=== PATIENT | male | born 1990 | race Caucasian/White ===

== ENCOUNTER 2016-08-16 02:03 | Inpatient (IN) | payer BC ==
[2016-08-16] MEDS ORDERED: Ondansetron 4 MG/2 ML SDV IVPUSH ONE (02:38)
[2016-08-16] MEDS ORDERED: Sodium Chloride 0.9% 1,000 ML IV ONE ×3 (02:38→09:19)
[2016-08-16] MEDS ORDERED: Ketorolac 30 MG/ML SDV IVPUSH ONE (02:38)
[2016-08-16] MEDS ORDERED: Iopamidol 755 Mg/ML 100 ML Bottle IVPUSH STA (02:39)
[2016-08-16 03:05] LABS: CHLORIDE,CL 103 mmol/L (98-110); SODIUM,NA 140 mmol/L (136-146)
[2016-08-16] MEDS ORDERED: Sodium Chloride 0.9% 1,000 ML IV SCH (03:45)
--- NOTE | 2016-08-16 03:47 | EDM.PDOC ---
ED HPI GENERAL MEDICAL PROBLEM - General Chief Complaint: Abdominal Pain Stated Complaint: ABDOMINAL PAIN Time Seen by Provider: 08/16/16 03:45 Source of Information: Reports: Patient - History of Present Illness INITIAL COMMENTS - FREE TEXT/NARRATIVE: HISTORY AND PHYSICAL: History of present illness: [] Patient presents with abdominal pain he rates 8/10 radiating to bilateral flanks, it is hard for him to pinpoint the abdominal pain seems to be epigastric radiating to bilateral flanks, he describes it as being a bit of gas , he did take Gas-X with no improvement earlier on today, on exam he has some left lower quadrant tenderness on deep palpation. He states pain began yesterday and was mild at that time he took Tylenol with resolution. Pain returning again today worsening throughout the day and this evening decreased to the 8/10 pain prompting his arrival here currently no fever nausea vomiting chills sweats no chest pain shortness breath headache dizziness or palpitation no bowel or urine symptoms History of prior pancreatitis secondary to gallbladder dysfunction History of cholecystectomy Review of systems: As per history of present illness and below otherwise all systems reviewed and negative. Past medical history: As per history of present illness and as reviewed below otherwise noncontributory. Surgical history: As per history of present illness and as reviewed below otherwise noncontributory. Social history: No reported history of drug or alcohol abuse. Family history: As per history of present illness and as reviewed below otherwise noncontributory. Physical exam: HEENT: Atraumatic, normocephalic, pupils reactive, negative for conjunctival pallor or scleral icterus, mucous membranes moist, throat clear, neck supple, nontender, trachea midline. Lungs: Clear to auscultation, breath sounds equal bilaterally, chest nontender. Heart: S1S2, regular, negative for clicks, rubs, or JVD. Abdomen: Soft, nondistended, tender in epigastrium and left lower quadrant on deep palpation, some guarding no rebound Negative for masses or hepatosplenomegaly. Negative for costovertebral tenderness. Pelvis: Stable nontender. Genitourinary: Deferred. Rectal: Deferred. Extremities: Atraumatic, negative for cords or calf pain. Neurovascular unremarkable. Neuro: Awake, alert, oriented. Cranial nerves II through XII unremarkable. Cerebellum unremarkable. Motor and sensory unremarkable throughout. Exam nonfocal. Diagnostics: [] Lab as below CT abdomen pelvis with and without contrast Therapeutics: [] 1 L normal saline bolus Zofran 8 mg IV Toradol 30 mg IV Impression: Abdominal pain pancreatitis Definitive disposition and diagnosis as appropriate pending reevaluation and review of above. Right Upper Abdomen Pain Score (Numeric/FACES): 6 - Related Data Allergies Allergy/AdvReac Type Severity Reaction Status Date / Time miconazole nitrate Allergy Rash Verified 06/08/15 16:47 [From Neosporin AF] morphine Allergy Hallucinati Verified 06/08/15 16:47 ons Sulfa (Sulfonamide Allergy Rash Verified 06/08/15 16:47 Antibiotics) Home Meds: Home Meds Fluconazole [Diflucan] 150 mg PO WEEKLY 06/08/15 [History] diphenhydrAMINE HCl [Benadryl] 25 mg PO Q6HR 3 Days 06/08/15 [Rx] methylPREDNISolone [Medrol] 4 mg PO ASDIRECTED #1 dospk 06/08/15 [Rx] Past Medical History - Past Health History Medical/Surgical History: Denies Medical/Surgical History HEENT History: Reports: None Cardiovascular History: Reports: None Respiratory History: Reports: None Gastrointestinal History: Reports: Pancreatitis Genitourinary History: Reports: None Neurological History: Reports: None Psychiatric History: Reports: None Endocrine/Metabolic History: Reports: None Hematologic History: Reports: None Immunologic History: Reports: None Oncologic (Cancer) History: Reports: None Dermatologic History: Reports: None - Past Surgical History Head Surgeries/Procedures: Reports: None HEENT Surgical History: Reports: Adenoidectomy, Tonsillectomy GI Surgical History: Reports: Cholecystectomy Musculoskeletal Surgical History: Reports: Other (see below) Other Musculoskeletal Surgeries/Procedures:: knee sx Social & Family History - Family History Family Medical History: Noncontributory - Tobacco Use Smoking Status *Q: Never Smoker Second Hand Smoke Exposure: No - Caffeine Use Caffeine Use: Reports: Soda Caffeine Use Comment: 2drinks/day - Recreational Drug Use Recreational Drug Use: No ED ROS GENERAL - Review of Systems Review Of Systems: ROS reveals no pertinent complaints other than HPI. ED EXAM, GENERAL - Physical Exam Exam: See Below Course - Vital Signs Last Recorded V/S: Last Vital Signs Temp 36.4 C 08/16/16 03:36 Pulse 88 08/16/16 03:36 Resp 16 08/16/16 03:36 BP 130/91 H 08/16/16 03:36 Pulse Ox 99 08/16/16 03:36 - Orders/Labs/Meds Orders: Active Orders 24 hr Category Date Time Status Abdomen Pelvis w wo Cont [CT] Stat Exams 08/16/16 02:38 Taken Sodium Chloride 0.9% [Normal Saline] 1,000 ml Med 08/16/16 03:45 Active IV STAT Medication Orders Sodium Chloride (Normal Saline) 1,000 mls @ 150 mls/hr IV STAT GEMA Last Admin: 08/16/16 04:18 Dose: 150 mls/hr Labs: Laboratory Tests 08/16/16 08/16/16 08/16/16 Range/Units 02:40 02:40 02:40 WBC 9.24 (4.0-11.0) K/uL RBC 5.05 (4.50-5.90) M/uL Hgb 15.3 (13.0-17.0) g/dL Hct 43.6 (38.0-50.0) % MCV 86.3 (80.0-98.0) fL MCH 30.3 (27.0-32.0) pg MCHC 35.1 (31.0-37.0) g/dL RDW Std Deviation 37.2 (28.0-62.0) fl RDW Coeff of Denice 12 (11.0-15.0) % Plt Count 243 (150-400) K/uL MPV 8.40 (7.40-12.00) fL Neut % (Auto) 71.8 (48.0-80.0) % Lymph % (Auto) 14.1 L (16.0-40.0) % [place] % (Auto) 10.4 (0.0-15.0) % Eos % (Auto) 3.5 (0.0-7.0) % Baso % (Auto) 0.2 (0.0-1.5) % Neut # 6.6 H (1.4-5.7) K/uL Lymph # 1.3 (0.6-2.4) K/uL [place] # 1.0 H (0.0-0.8) K/uL Eos # 0.3 (0.0-0.7) K/uL Baso # 0.0 (0.0-0.1) K/uL Sodium 140 (136-146) mmol/L Potassium 3.9 (3.5-5.1) mmol/L Chloride 103 (98-110) mmol/L Carbon Dioxide 25 (21-31) mmol/L BUN 12 (6.0-23.0) mg/dL Creatinine 0.9 (0.6-1.5) mg/dL Est Cr Clr Drug Dosing 155.38 mL/min Estimated GFR (MDRD) > 60.0 ml/min Glucose 100 (60-110) mg/dL Calcium 10.5 (8.8-10.8) mg/dL Total Bilirubin 0.6 (0.1-1.5) mg/dL AST 25 (5-40) IU/L ALT 75 H (8-54) IU/L Alkaline Phosphatase 149 (40-150) Total Protein 8.1 H (6.0-8.0) g/dL Albumin 4.3 (3.5-5.0) g/dL Globulin 3.8 H (2.0-3.5) g/dL Albumin/Globulin Ratio 1.1 L (1.3-2.8) Amylase 145 H (10-90) U/L Lipase 265 H (7-80) U/L Urine Color YELLOW Urine Appearance CLEAR Urine pH 5.5 (5.0-8.0) Ur Specific [place] 1.020 (1.001-1.035) Urine Protein NEGATIVE (NEGATIVE) mg/dL Urine Glucose (UA) NEGATIVE (NEGATIVE) mg/dL Urine Ketones NEGATIVE (NEGATIVE) mg/dL Urine Occult Blood NEGATIVE (NEGATIVE) Urine Nitrite NEGATIVE (NEGATIVE) Urine Bilirubin NEGATIVE (NEGATIVE) Urine Urobilinogen 0.2 (<2.0) EU/dL Ur Leukocyte Esterase NEGATIVE (NEGATIVE) Urine RBC 0-1 (0-2/HPF) Urine WBC 0-1 (0-5/HPF) Ur Epithelial Cells FEW (NONE-FEW) Urine Bacteria FEW (NEGATIVE) Meds: Medications Generic Name Dose Route Start Last Admin Trade Name Freq PRN Reason Stop Dose Admin Sodium Chloride 1,000 mls @ 150 mls/hr 08/16/16 03:45 08/16/16 04:18 Normal Saline IV 150 mls/hr STAT GEMA Administration Discontinued Medications Generic Name Dose Route Start Last Admin Trade Name Freq PRN Reason Stop Dose Admin Sodium Chloride 1,000 mls @ 999 mls/hr 08/16/16 02:38 08/16/16 02:56 Normal Saline IV 08/16/16 03:38 999 mls/hr STAT ONE Administration Iopamidol 100 ml 08/16/16 02:39 08/16/16 03:08 Isovue-370 (76%) IVPUSH 08/16/16 02:40 100 ml ONETIME STA Administration Ketorolac Tromethamine 30 mg 08/16/16 02:38 08/16/16 02:54 Toradol IVPUSH 08/16/16 02:39 30 mg ONETIME ONE Administration Ondansetron HCl 8 mg 08/16/16 02:38 08/16/16 02:53 Zofran IVPUSH 08/16/16 02:39 8 mg ONETIME ONE Administration Departure - Departure Time of Disposition: 04:20 Disposition: Admitted As Inpatient 67 Condition: good Clinical Impression: Abdominal pain Referrals: PCP,None [Primary Care Provider] - Forms: ED Department Discharge - My Orders Last 24 Hours: My Active Orders 08/16/16 02:38 Abdomen Pelvis w wo Cont [CT] Stat 08/16/16 03:45 Sodium Chloride 0.9% [Normal Saline] 1,000 ml IV STAT - Assessment/Plan Last 24 Hours: My Active Orders 08/16/16 02:38 Abdomen Pelvis w wo Cont [CT] Stat 08/16/16 03:45 Sodium Chloride 0.9% [Normal Saline] 1,000 ml IV STAT
[2016-08-16] MEDS ORDERED: HYDROmorphone 1 MG/ML Syringe IVPUSH PRN (05:19)
[2016-08-16] MEDS ORDERED: Sodium Chloride 0.45% 1,000 ML IV SCH (05:30)
--- NOTE | 2016-08-16 08:16 | PCM.HP ---
H&P History of Present Illness - General Date of Service: 08/16/16 Admit Problem/Dx: Admission Diagnosis/Problem Admission Diagnosis/Problem Abdominal pain Source of Information: Patient History Limitations: Reports: No limitations - History of Present Illness Initial Comments - Free Text/Narative: This 25 year old male with pmh of pancreatitis 7 years ago due to gallstones presented to the ED last evening due to abdominal, back and flank pain. On Friday, he started having some mid back pain, took Tylenol and this improved, then and Friday the pain waxed and waned throughout the days, Friday evening it worsened significant and around midnight felt like he needed to be evaluated. Family was concerned it was pancreatitis again due to symptoms. He denies fever, chills, nausea or diarrhea. Last week he recalls he felt overly fatigued for 1-2 days then felt better. He has never drank alcohol. He is on a strict low to no sugar diet due to skin sensitivities and by recommendation of a administration internship. He eats very little red meat, mainly chicken. He takes no daily medications except for OTC allergy medication. In the ED CBC and BMP WNL. ALT 75, Alk phos and AST WNL. Lipase 265 amylase 145 , CT of abdomen was unremarkable. He will be admitted for pancreatitis. He received 1 L bolus in ED. Triglycerides 130. Right Upper Abdomen Pain Score (Numeric/FACES): 6 - Related Data Allergies/Adverse Reactions: Allergies Allergy/AdvReac Type Severity Reaction Status Date / Time miconazole nitrate Allergy Rash Verified 08/16/16 04:28 [From Neosporin AF] morphine Allergy Hallucinati Verified 08/16/16 04:28 ons Sulfa (Sulfonamide Allergy Rash Verified 08/16/16 04:28 Antibiotics) Home Medications: Home Meds . [No Known Home Meds] 08/16/16 [History] Past Medical History - Past Health History Medical/Surgical History: Denies Medical/Surgical History HEENT History: Reports: None Cardiovascular History: Reports: None. Denies: Blood clots/VTE/DVT, CAD, High cholesterol, Hypertension, DC Respiratory History: Reports: None. Denies: Asthma, COPD, PE Gastrointestinal History: Reports: Cholelithiasis, Pancreatitis Genitourinary History: Reports: None. Denies: Acute renal failure, Chronic renal insuffiency Neurological History: Reports: None. Denies: CVA, TIA Psychiatric History: Reports: None Endocrine/Metabolic History: Reports: Obesity/BMI 30+. Denies: Diabetes, type II Hematologic History: Reports: None Immunologic History: Reports: None Oncologic (Cancer) History: Reports: None Dermatologic History: Reports: None, Other (see below) (sensitivities to sugars causes rash to skin) - Past Surgical History Head Surgeries/Procedures: Reports: None HEENT Surgical History: Reports: Adenoidectomy, Tonsillectomy GI Surgical History: Reports: Cholecystectomy, ERCP Musculoskeletal Surgical History: Reports: Other (see below) Other Musculoskeletal Surgeries/Procedures:: knee sx Social & Family History - Family History Family Medical History: Noncontributory - Tobacco Use Smoking Status *Q: Never Smoker Second Hand Smoke Exposure: No - Caffeine Use Caffeine Use: Reports: Soda Caffeine Use Comment: 2drinks/day - Alcohol Use Alcohol Use History: No - Recreational Drug Use Recreational Drug Use: No H&P Review of Systems - Review of Systems: Review Of Systems: See Below General: Reports: fatigue. Denies: fever, chills HEENT: Reports: no symptoms Pulmonary: Reports: no symptoms. Denies: shortness of breath, wheezing, cough, sputum Cardiovascular: Reports: no symptoms. Denies: chest pain, palpitations, edema Gastrointestinal: Reports: Abdominal pain (Mid and L flank) Genitourinary: Reports: no symptoms. Denies: dysuria, frequency, burning, pain Musculoskeletal: Reports: back pain (mid back pain) Skin: Reports: no symptoms Psychiatric: Reports: no symptoms Hematologic/Lymphatic: Reports: no symptoms Immunologic: Reports: no symptoms Exam - Exam Exam: See Below - Vital Signs Vital Signs: Last Vital Signs Temp 97.2 F 08/16/16 05:02 Pulse 71 08/16/16 05:02 Resp 16 08/16/16 05:02 BP 144/90 H 08/16/16 05:02 Pulse Ox 94 L 08/16/16 05:02 Weight: 142.292 kg - Exam General: alert, oriented, cooperative HEENT: Conjunctiva clear, EACs clear, EOMI, Hearing intact, Mucosa moist & pink , Normal nasal septum, Posterior pharynx clear Neck: supple, trachea midline, 2+ carotid pulse wo bruit Lungs: Clear to auscultation, Normal respiratory effort Cardiovascular: regular rate, regular rhythm, normal S1, normal S2. No: bradycardia, tachycardia Abdomen: normal bowel sounds, soft. No: organomegaly, distention, rigidity, rebound, tenderness Back Exam: normal inspection Extremities: normal inspection, normal pulses. No: edema, increased warmth Neurological: cranial nerves intact, reflexes equal bilateral Neuro Extensive - Mental Status: alert Neuro Extensive - Motor, Sensory, Reflexes: CN II-XII intact, normal gait, normal reflexes Psychiatric: alert, normal affect, normal mood - Patient Data Result Diagrams: 08/16/16 02:40 08/16/16 02:40 *Q Meaningful Use (ADM) - VTE *Q VTE Criteria *Q: - VTE Risk Assess *Q Each Risk Factor Represents 1 Point: Obesity (BMI greater than 30) Total Score 1 Point Risk Factors: 1 Each Risk Factor Represents 2 Points: None Total Score 2 Point Risk Factors: 0 Each Risk Factor Represents 3 Points: None Total Score 3 Point Risk Factors: 0 Each Risk Factor Represents 5 Points: None Total Score 5 Point Risk Factors: 0 Venous Thromboembolism Risk Factor Score *Q: 1 - Stroke *Q Stroke Criteria *Q: - AMI *Q AMI Criteria *Q: - Problem List (1) Pancreatitis SNOMED Code(s): 89995137 ICD Code: K85.90 - ACUTE PANCREATITIS WITHOUT NECROSIS OR INFECTION, UNSP Status: Acute Current Visit: Yes (2) Abdominal pain SNOMED Code(s): 85165194 ICD Code: R10.9 - UNSPECIFIED ABDOMINAL PAIN Status: Acute Current Visit : Yes Qualifiers: Abdominal location: upper abdomen, unspecified Qualified Code(s): R10.10 - Upper abdominal pain, unspecified Problem List Initiated/Reviewed/Updated: Yes Orders Last 24hrs: Active Orders 24 hr Category Date Time Status Patient Status [ADT] Routine ADT 08/16/16 05:17 Active Nothing per Oral Now Diet [DIET] Diet 08/16/16 Breakfast Active AMYLASE [CHEM] Routine Lab 08/16/16 10:00 Ordered LIPASE [CHEM] Routine Lab 08/16/16 10:00 Ordered Enoxaparin [Lovenox] Med 08/16/16 09:00 Active 40 mg SUBCUT Q24H HYDROmorphone [Dilaudid] Med 08/16/16 05:19 Active 0.5 mg IVPUSH Q2H PRN Ondansetron [Zofran] Med 08/16/16 05:19 Active 4 mg IVPUSH Q4H PRN Pantoprazole [Protonix IV] 40 mg Med 08/16/16 09:00 Active Sodium Chloride 0.9% [Normal Saline] 10 ml IVPUSH Q24H Sodium Chloride 0.45% 1,000 ml Med 08/16/16 05:30 Active IV ASDIRECTED Sodium Chloride 0.9% [Normal Saline] 1,000 ml Med 08/16/16 08:12 Ordered IV .BOLUS Medication Orders Enoxaparin Sodium (Lovenox) 40 mg SUBCUT Q24H GEMA Hydromorphone HCl (Dilaudid) 0.5 mg IVPUSH Q2H PRN PRN Reason: Pain Pantoprazole Sodium 40 mg/ (Sodium Chloride) 10 mls @ 300 mls/hr IVPUSH Q24H GEMA Sodium Chloride (Sodium Chloride 0.45%) 1,000 mls @ 150 mls/hr IV ASDIRECTED GEMA Last Admin: 08/16/16 05:54 Dose: 150 mls/hr Sodium Chloride (Normal Saline) 1,000 mls @ 999 mls/hr IV .BOLUS ONE Stop: 08/16/16 09:12 Ondansetron HCl (Zofran) 4 mg IVPUSH Q4H PRN PRN Reason: Nausea/Vomiting Assessment/Plan Comment:: This 25 year old male admitted with pancreatitis 1. Pancreatitis: Will give 2 L bolus now for fluid resuscitation, then continue NS 200 ml/hr. Will recheck amylase and lipase this morning. CT unremarkable, will obtain abdominal US of RUQ to looks more closely at ductal system. Analgesia and anti-emetics PRN. VTE: Lovenox. Dispo: 2-4 days pending improvement.
[2016-08-16] MEDS: Pantoprazole 40 MG in Sodium Chloride 0.9% 10 ML IVPUSH SCH (09:02)
[2016-08-16] MEDS: Enoxaparin 40 MG/0.4 ML Syringe SUBCUT SCH (09:06)
[2016-08-16] MEDS: Sodium Chloride 0.9% 1,000 ML IV SCH ×2 (11:14→16:20)
--- NOTE | 2016-08-16 15:35 | US ---
EXAMINATION: Right upper quadrant ultrasound HISTORY: Biliary dysfunction COMPARISON: CT dated 08/16/2016 TECHNIQUE: Grayscale and color Doppler images obtained of the right upper quadrant FINDINGS: The visualized pancreas appears normal. The liver is normal in contour and echogenicity wi thout a focal hepatic mass. Cholecystectomy. The common bile duct measures 5 mm. The right kidney me asures 12.2 cm [id number] without evidence of hydronephrosis. The abdominal ascites. IMPRESSION: Grossly unremarkable right upper quadrant ultrasound.
--- NOTE | 2016-08-16 16:50 | CT ---
EXAM DATE: 08/16/16 PATIENT'S AGE: 25 Patient: MIGUEL GALLEGO Facility: [place], [place] Site . Site : 1990 Study: CT Abdomen/Pelvis [id number] 3:48:50 AM Ordering Physician: Doctor Anguiano Final Report: INDICATION: Bilateral flank pain TECHNIQUE: CT abdomen and pelvis with IV contrast, 100 cc Isovue 370. COMPARISON: None FINDINGS: Lower chest: Unremarkable. Liver: Unremarkable. Spleen: Unremarkable. Pancreas: Unremarkable. Gallbladder and bile ducts: Status post cholecystectomy. Kidneys: Unremarkable. No kidney or ureteral stones and no hydronephrosis. Adrenal glands: Unremarkable. GI tract: Unremarkable. Appendix is not visualized. Vascular structures: Unremarkable. Lymph nodes: Unremarkable. Miscellaneous: Unremarkable. No free air or significant free fluid. Pelvic Organs: Unremarkable. Bones: Unremarkable for age. IMPRESSION: Unremarkable noncontrast CT of the abdomen and pelvis. No urinary tract stones, hydronephrosis, or other cause for flank pain. Dictated by Adal Salguero MD @ 08/16/2016 3:58:05 AM Dictated by: Adal Salguero MD @ 08/16/2016 03:58:11 (Electronic Signature) Report Signed by Proxy and Original Signed Document filed in the Medical Record. MTDD
[2016-08-16] MEDS: Ondansetron 4 MG/2 ML SDV IVPUSH PRN (19:27)
[2016-08-16] MEDS: Acetaminophen 325 MG Tab PO PRN (21:30)
[2016-08-17] MEDS: Sodium Chloride 0.9% 1,000 ML IV SCH (00:07)
[2016-08-17 07:05] LABS: CHLORIDE,CL 109 mmol/L (98-110); SODIUM,NA 142 mmol/L (136-146)
[2016-08-17] MEDS: Ondansetron 4 MG/2 ML SDV IVPUSH PRN (07:31)
[2016-08-17] MEDS: Enoxaparin 40 MG/0.4 ML Syringe SUBCUT SCH (08:12)
[2016-08-17] MEDS: Pantoprazole 40 MG in Sodium Chloride 0.9% 10 ML IVPUSH SCH (08:13)
[2016-08-17] MEDS: Acetaminophen 325 MG Tab PO PRN (11:22)
[2016-08-17 12:34] VITALS: BP 135/74
--- NOTE | 2016-08-17 13:52 | PCM.SN ---
- Free Text/Narrative Note: I have called for patient transfer at [facility] , I was told to wait because dispacher was on another 2 calls , to wait for her to call me back
--- NOTE | 2016-08-17 16:46 | PCM.PN ---
- General Info Date of Service: 08/17/16 Subjective Update: abdominal pain subsided , patient tolerated diet today .Had significant nausea last night after he had clear liquid diet Functional Status: Reports: pain controlled - Review of Systems General: Reports: no symptoms HEENT: Reports: no symptoms Pulmonary: Reports: no symptoms Cardiovascular: Reports: no symptoms Gastrointestinal: Reports: No symptoms Genitourinary: Reports: no symptoms Musculoskeletal: Reports: no symptoms Skin: Reports: no symptoms Neurological: Reports: no symptoms Psychiatric: Reports: no symptoms - Patient Data Vitals - most recent: Last Vital Signs Temp 96.8 F 08/17/16 11:00 Pulse 80 08/17/16 11:00 Resp 16 08/17/16 11:00 BP 135/74 08/17/16 11:00 Pulse Ox 96 08/17/16 11:00 Weight - most recent: 313 lb 11.2 oz I&O - last 24 hours: Intake & Output 08/17/16 08/17/16 08/17/16 06:59 14:59 22:59 Intake Total 1000 Output Total 1450 Balance -450 Lab Results last 24 hrs: Laboratory Results - last 24 hr 08/17/16 08/17/16 Range/Units 06:15 06:15 WBC 5.47 (4.0-11.0) K/uL RBC 4.67 (4.50-5.90) M/uL Hgb 13.5 (13.0-17.0) g/dL Hct 40.4 (38.0-50.0) % MCV 86.5 (80.0-98.0) fL MCH 28.9 (27.0-32.0) pg MCHC 33.4 (31.0-37.0) g/dL RDW Std Deviation 38.1 (28.0-62.0) fl RDW Coeff of Denice 12 (11.0-15.0) % Plt Count 189 (150-400) K/uL MPV 8.90 (7.40-12.00) fL Neut % (Auto) 57.9 (48.0-80.0) % Lymph % (Auto) 23.0 (16.0-40.0) % [place] % (Auto) 11.5 (0.0-15.0) % Eos % (Auto) 6.9 (0.0-7.0) % Baso % (Auto) 0.7 (0.0-1.5) % Neut # 3.2 (1.4-5.7) K/uL Lymph # 1.3 (0.6-2.4) K/uL [place] # 0.6 (0.0-0.8) K/uL Eos # 0.4 (0.0-0.7) K/uL Baso # 0.0 (0.0-0.1) K/uL Nucleated RBC % 0.0 /100WBC Nucleated RBCs # 0 K/uL Sodium 142 (136-146) mmol/L Potassium 3.6 (3.5-5.1) mmol/L Chloride 109 (98-110) mmol/L Carbon Dioxide 22 (21-31) mmol/L BUN 7 (6.0-23.0) mg/dL Creatinine 0.7 (0.6-1.5) mg/dL Est Cr Clr Drug Dosing 199.78 mL/min Estimated GFR (MDRD) > 60.0 ml/min Glucose 72 (60-110) mg/dL Calcium 8.9 (8.8-10.8) mg/dL Total Bilirubin 0.6 (0.1-1.5) mg/dL AST 20 (5-40) IU/L ALT 53 (8-54) IU/L Alkaline Phosphatase 130 (40-150) Total Protein 6.7 (6.0-8.0) g/dL Albumin 3.6 (3.5-5.0) g/dL Globulin 3.1 (2.0-3.5) g/dL Albumin/Globulin Ratio 1.2 L (1.3-2.8) Lipase 93 H (7-80) U/L Med Orders - Current: Current Medications Acetaminophen (Tylenol) 650 mg PO Q6H PRN PRN Reason: Pain/Fever Last Admin: 08/17/16 11:22 Dose: 650 mg Enoxaparin Sodium (Lovenox) 40 mg SUBCUT Q24H [facility] Last Admin: 08/17/16 08:12 Dose: 40 mg Hydromorphone HCl (Dilaudid) 0.5 mg IVPUSH Q2H PRN PRN Reason: Pain Pantoprazole Sodium 40 mg/ (Sodium Chloride) 10 mls @ 300 mls/hr IVPUSH Q24H [facility] Last Admin: 08/17/16 08:13 Dose: 300 mls/hr Sodium Chloride (Normal Saline) 1,000 mls @ 150 mls/hr IV ASDIRECTED [facility] Last Admin: 08/17/16 00:07 Dose: 100 mls/hr Ondansetron HCl (Zofran) 4 mg IVPUSH Q4H PRN PRN Reason: Nausea/Vomiting Last Admin: 08/17/16 07:31 Dose: 4 mg Discontinued Medications Sodium Chloride (Normal Saline) 1,000 mls @ 999 mls/hr IV STAT ONE Stop: 08/16/16 03:38 Last Admin: 08/16/16 02:56 Dose: 999 mls/hr Sodium Chloride (Normal Saline) 1,000 mls @ 150 mls/hr IV STAT [facility] Last Admin: 08/16/16 04:18 Dose: 150 mls/hr Sodium Chloride (Sodium Chloride 0.45%) 1,000 mls @ 150 mls/hr IV ASDIRECTED [facility] Last Admin: 08/16/16 05:54 Dose: 150 mls/hr Sodium Chloride (Normal Saline) 1,000 mls @ 999 mls/hr IV .BOLUS ONE Stop: 08/16/16 09:12 Last Admin: 08/16/16 09:09 Dose: 999 mls/hr Sodium Chloride (Normal Saline) 1,000 mls @ 999 mls/hr IV .Bolus ONE Stop: 08/16/16 10:19 Last Admin: 08/16/16 10:12 Dose: 999 mls/hr Iopamidol (Isovue-370 (76%)) 100 ml IVPUSH ONETIME STA Stop: 08/16/16 02:40 Last Admin: 08/16/16 03:08 Dose: 100 ml Ketorolac Tromethamine (Toradol) 30 mg IVPUSH ONETIME ONE Stop: 08/16/16 02:39 Last Admin: 08/16/16 02:54 Dose: 30 mg Ondansetron HCl (Zofran) 8 mg IVPUSH ONETIME ONE Stop: 08/16/16 02:39 Last Admin: 08/16/16 02:53 Dose: 8 mg - Exam General: alert, oriented HEENT: Pupils equal, Pupils reactive, EOMI, Mucous membr. moist/pink Neck: supple Lungs: Clear to auscultation, Normal respiratory effort Cardiovascular: regular rate, regular rhythm Abdomen: bowel sounds present, soft, no tenderness, no distension Back Exam: normal inspection, full range of motion Extremities: no edema Skin: warm, dry, intact Wound/Incisions: healing well Neurological: no new focal deficit Psy/Mental Status: alert, normal affect, normal mood - Problem List & Annotations (1) Elevated amylase and lipase SNOMED Code(s): 169303073, 972194440 Code(s): R74.8 - ABNORMAL LEVELS OF OTHER SERUM ENZYMES Status: Acute Current Visit: Yes (2) Elevated alanine aminotransferase (ALT) level SNOMED Code(s): 724656365 Code(s): R74.0 - NONSPEC ELEV OF LEVELS OF TRANSAMNS & LACTIC ACID DEHYDRGNSE Status: Acute Current Visit: Yes (3) Splenomegaly SNOMED Code(s): 94332800 Code(s): R16.1 - SPLENOMEGALY, NOT ELSEWHERE CLASSIFIED Status: Acute Current Visit: Yes (4) Cystic lesion of abdominal viscera SNOMED Code(s): 004439396, 400363544 Code(s): K66.8 - OTHER SPECIFIED DISORDERS OF PERITONEUM Status: Acute Current Visit: Yes (5) Abdominal cyst SNOMED Code(s): 58003568 Code(s): K66.8 - OTHER SPECIFIED DISORDERS OF PERITONEUM Status: Acute Current Visit: Yes - Problem List Review Problem List Initiated/Reviewed/Updated: Yes - My Orders Last 24 Hours: My Active Orders 08/16/16 21:16 Acetaminophen [Tylenol] 650 mg PO Q6H PRN 08/17/16 14:20 Ready for Discharge [RC] PER UNIT ROUTINE - Plan Plan:: MRCP showed a cystic dilation of hepatis kavin and possible remnant cystic duct dilatation or fluid collection , no inflamatory changes in pancreas, splenomegaly I have called Dr. Holbrook in [place] , recommended patient to have endoscopic Us. Patient will be discharged today and will go as direct admit to [facility] tomorrow via a private vehicule Assessment Elevated lipase , amilase - resolved elevated LFts -resolved abdominal pain-resolved cystic lesion in the abdomen splenomegaly Plan: F/up US endoscopy with Dr. Farah tomorrow at [facility] . Accepting physician :DR. Burks/ hospitalist , DR. Farah/ GI
--- NOTE | 2016-08-17 20:02 | PCM.SN ---
- Free Text/Narrative Note: [id number]
--- NOTE | 2016-08-18 21:46 | DISCH ---
DATE OF DISCHARGE: 08/17/2016 PRIMARY CARE PHYSICIAN: None PCP HISTORY OF PRESENT ILLNESS: A 25-year-old male with past medical history of pancreatitis seven years ago due to gallstones, presented to the Emergency Department last evening due to abdominal, back, and flank pain. On Friday, the patient started to have some mild back pain, took Tylenol, and improved. On and Friday, the pain waxed and waned throughout the day. On evening, it worsened significantly like he needed to be evaluated. Family was concerned that it was pancreatitis again, but at the same time, he denies fever, chills, nausea, or diarrhea. Last week, he recalls he felt overly fatigued for one to two days, and then felt better. He has never drank alcohol. He is on a low-to-no sugar diet due to skin sensitivities and per recommendation of dermatologists. He eats very little red meats, mainly chicken. He takes no daily medication except two [id number] medications. In the Emergency Department, CBC complete blood count and BMP basic metabolic panel were within normal limits with ALT of 75; alkaline phosphatase and AST were within normal limits; and lipase was [address] was [address] of the abdomen was unremarkable. He was admitted for acute pancreatitis. He received 1 L bolus in Emergency Department. Triglycerides were 130. HOSPITAL COURSE: The patient was admitted in the hospital, and was given IV intravenous fluids. His lipase was trended down and it reached 135 and 93 today. The patient was started on clear liquid diet yesterday and his abdominal pain subsided, and he was very nauseated last night. Today, he tolerated diet. He had CT of the abdomen done in the Emergency Room, which was unremarkable. He also had a right upper quadrant sonogram, which was unremarkable. He had MRCP magnetic resonance cholangiopancreatography of the abdomen, which showed there is a cystic vessel within the kavin hepatis which measured in the order of 4.5 cm in long dimension. This appeared separate from the extrahepatic bile duct, which was non-dilated. The cystic process appeared well marginated and enlarged as compared to the recent CT. In the setting of the previously removed gallbladder, this could reflect a dilated cystic duct remnant or localized rate collection. No surrounding inflammatory change was seen. No intrahepatic biliary ductal dilation. Spleen is enlarged measuring 16 cm. The patient's MRCP magnetic resonance cholangiopancreatography was discussed with [facility] at [place]. He recommended the patient to be transferred to a center where he can have an endoscopic ultrasound. The patient opted to be transferred to [facility] in [place], and I have called [facility] in [place] and he was accepted by Dr. Valencia. The hospitalist who accepted the patient was Dr. Burks. The patient and his family stated that he will travel tomorrow by private vehicle to [facility]. The patient's symptoms resolved. DIAGNOSES AT DISCHARGE: The patient had 1. Abdominal pain. 2. Elevated lipase and amylase. 3. Elevated LFTs liver function tests. 4. Splenomegaly and cystic within kavin hepatis of 4.5 cm and possible fluid collection in the abdomen. DISCHARGE FOLLOWUP: The patient is to follow up with GI at the [facility] in [place]. CONDITION ON DISCHARGE: Stable. DISCHARGE DIET: As tolerated , of 2-g sodium. MEDICATIONS ON DISCHARGE: None. DISCHARGE ACTIVITIES: As tolerated. PHYSICAL EXAMINATION ON DISCHARGE: HEAD: Atraumatic and normocephalic. EYES: Pupils are equally reactive to light. NECK: Supple. No thyromegaly. No lymphadenopathy. HEART: S1 and S2. Regular rhythm and rate. No murmur. LUNGS: Clear to auscultation bilaterally. ABDOMEN: Soft and nontender. Positive bowel sounds. There is a type of splenomegaly, like about 2 inches below the lower left thoracic border. EXTREMITIES: No edema. ANTOPET / MODL /[id number] MTDJuliocesar
--- NOTE | 2016-08-19 17:29 | MR ---
EXAM DATE: 08/16/16 PATIENT'S AGE: 25 Patient: MIGUEL GALLEGO Facility: [place], [place] Site . Site : 1990 Study: MRI Abdomen [id number]/4/2017 11:13:42 AM Ordering Physician: Monserrat Araujo Final Report: INDICATION: Abdominal pain. TECHNIQUE: An MRCP, including 2D, 3D and maximum intensity projection imaging, was performed. COMPARISON: Abdomen/pelvis CT of 08/16/2016. FINDINGS: The gallbladder has been removed. A circumscribed 4.2 x 3.1 x 2.4 cm cystic structure in the gallbladder fossa is demonstrated and is clearly increased from yesterday`s CT scan. This could represent a very dilated cystic duct remnant which has expanded since the CT. At that time the CT, this appears to have measured roughly 2.3 x 1.9 x 1.9 cm. The common bile duct measures up to roughly 3 mm in diameter. No filling defect is evident. The biliary tree appears to branch and taper in a grossly normal fashion. The pancreatic duct is normal. The liver is normal in size, shape and signal. The spleen is mildly enlarged. The pancreas, adrenal glands and kidneys are within normal limits. No bowel abnormality, lymphadenopathy or free fluid is demonstrated. IMPRESSION: 1. Post cholecystectomy and apparent patulous cystic duct remnant, larger than on yesterday`s CT scan. Otherwise negative MRCP. 2. Mild splenomegaly. Dictated by Jose Angel West MD @ Aug 19 2016 1:58PM (Electronic Signature) Report Signed by Proxy and Original Signed Document filed in the Medical Record. MTDD
== END 2016-08-17 17:00 | disposition home or self-care (01) | DRG 282 ==
LOC: MW.ED 02:03 → MW.MS 04:21
PROVIDERS: ADMIT Internal Medicine; ATTEND Internal Medicine
DX: K85.90 Acute pancreatitis without necrosis or infection, unspecified (principal); R74.8 Abnormal levels of other serum enzymes; R74.0 Nonspecific elevation of levels of transaminase and lactic acid dehydrogenase [LDH]; R16.1 Splenomegaly, not elsewhere classified; K66.8 Other specified disorders of peritoneum; Z90.49 Acquired absence of other specified parts of digestive tract; Z88.2 Allergy status to sulfonamides; Z88.6 Allergy status to analgesic agent
CPT/HCPCS: 36415; 74178; 74178-26; 74181; 74181-26; 76705; 76705-26; 80053; 80061; 81001; 82150; 83690; 85025; 96361; 96374; 96375; 99285; 99285-25; A9270-GY; C9113; J1650; J1885; J2405; J7030; J7040; Q9967